=== PATIENT | female | born 1985 ===

== ENCOUNTER 2017-12-06 22:00 | Emergency (ER) | payer BC ==
[2017-12-06 23:17] VITALS: BMI 43.4
--- NOTE | 2017-12-07 00:35 | OBHP ---
Datetime: 12/07/2017 00:02 IP Adm Impression: , intrauterine IP Admit Plan: Observation/Evaluation Admit Comment, IP Provider: Patient is a @ 36.0 wks with a cerclage, reported leaking this a fternoon and contractions, no vaginal bleeding, +FM. Patient has a cerclage placed for short cervix, otherwise no other antepartum issues. Patient evaluated, negative nitrazine and negative pooling. Rul ed out for rupture. Cerclage was removed - vaginal area preped with Betadine, speculum inserted, 2 mo nocryl loops found, ring forceps used, cut under the knot. monocryl removed in entirety. VE=1/50/-3. Will continue to monitor before discharge. JSX=525 mod prachi, +accels, no decels. TOCO= genaro q 3 -4 mins. If patient has no signs of early labor will discharge home, labor precautions given Pelvic Type - PN: Adequate Extremities - PN: Normal Abdomen - PN: Normal Back - PN: Normal Breast - PN: Normal Lungs - PN: Normal Heart - PN: Normal Thyroid - PN: Normal Neurologic - PN: Normal HEENT - PN: Normal General - PN: Normal FHR - Baseline A Provider: 150 Contraction Comments Provider: q 3-4 mins Pool Provider: Negative Nitrazine Provider: Negative Vital Signs Provider: Reviewed IP Chief Complaint: Uterine contractions; Suspected ruptured membranes NICHD Variability Prov Fetus A: Moderate 6-25bpm NICHD Accel Fetus A IP Provider: 15X15 Dilatation, Provider: 1 Effacement, Provider: 50 Station, Provider: -3 Genitourinary Exam: Normal DTRs - PN: Normal
[2017-12-07 18:06] VITALS: BP 114/68; PULSE 105; RESP 18; TEMP 97.9; O2SAT 98
== END 2017-12-07 01:00 | disposition home or self-care (01) ==
LOC: H.EROB2 22:00
DX: O26.93 Pregnancy related conditions, unspecified, third trimester (principal); R10.2 Pelvic and perineal pain; O34.63 Maternal care for abnormality of vagina, third trimester; N89.8 Other specified noninflammatory disorders of vagina; O26.873 Cervical shortening, third trimester; Z3A.36 36 weeks gestation of pregnancy

== ENCOUNTER 2017-12-20 11:34 | Inpatient (IN) | payer BC ==
[2017-12-20 11:51] VITALS: BMI 45.7
[2017-12-20] MEDS ORDERED: Lactated Ringer's 1,000 ML IV SCH (12:15)
[2017-12-20] MEDS: Lactated Ringer's 1,000 ML IV SCH ×2 (12:30→20:30)
[2017-12-20 13:30] LABS: BASO % 0.2 % (0.0-2.0); EOS % 0.4 % (0.0-4.0); HEMOGLOBIN 9.2 g/dL (12.0-16.0); LYMPH # 2.6 K/uL (1.0-4.3); MEAN CELL VOLUME 77.2 fl (81.0-99.0); MEAN CORPUSCULAR HGB CONC 31.1 g/dL (33.0-37.0); MEAN PLATELET VOLUME 8.4 fl (7.2-11.7); MONO # 0.7 K/uL (0.0-0.8); MONO % 5.6 % (0.0-10.0); NEUT # 8.6 K/uL (1.8-7.0); NEUT % 71.8 % (50.0-75.0); RBC 3.84 Mil/uL (3.80-5.20); RED CELL DISTRIBUTION WIDTH 16.9 % (11.5-14.5)
[2017-12-20] MEDS ORDERED: Oxytocin 30 units/LR 500ML 30 U/500 ML BAG IV ONE (13:57)
--- NOTE | 2017-12-20 14:02 | OBADHP ---
Datetime: 12/20/2017 12:18 Admit Comment, IP Provider: CC: IOL for oligo HPI: 32 YO @ 38.4 wks IUP (SYL 12/30/17 by u/s) presents to L_D for IOL for oligohydramnions. Endorsing good FM, no LOF, VB, has occasional ctx but none right now. MD: Kevyn, Dr. Castillo. OBHx: 1 demise @ 22wks 2010. 1x full term NVD (2011); Cerclage placed; baby 6.12 lbs Cerclage placed @22 wks for short cervix, s/p removal @ 36wks (2017). PNI: OLIGO; Obesity. GCT pos, GTT neg. Normal BP; 113-130/66-90s GynHx: normal periods, denies STIS PMH: denies SurgH: denies FH: denies SH: denies ETOH, smoking and illict drug use Meds: PNV Allergies: NKDA PE GEN: NAD Cardio: S1S2 no additional heart sounds Resp: clear breath sounds b/l Abdomen: Gravid, NT, BS+ Neuro: AAO x 3 Ext: non tender, no edema present u/s (12/20): AUDREY 4cm, vertex presentation FM: 140 catagory I Cervx: 3-4cm in office today A/P: 32 YP @ 38.4wks IUP (SYL 11/30/17) is admitted for IOL for oligohydramnions. Hep B neg, R ubella immune, HIV neg, GBS neg, RPR neg. -admit to L_D -start induction protocol -blood work -IV fluids -Anesthesiology consulted -continue FM Case discussed with attending Dr. Jemal Daniel, PGY I Addendum by Dr. Joaquin: I have evaluated the patient independently and I agree with the above. Pt i s /-3, AROM, clear fluid. Will consider starting Pitocin at next exam for augmentation Pelvic Type - PN: Adequate Extremities - PN: Normal Abdomen - PN: Normal Back - PN: Not Done Breast - PN: Not Done Lungs - PN: Normal Heart - PN: Normal Thyroid - PN: Not Done Neurologic - PN: Normal HEENT - PN: Normal FHR - Baseline A Provider: 140 Vital Signs Provider: Reviewed; Within Normal Limits IP Chief Complaint: Scheduled induction of labor NICHD Variability Prov Fetus A: Minimal - Undetectable to <5bpm NICHD Accel Fetus A IP Provider: 15X15 FHR Category Provider Fetus A: Category I Genitourinary Exam: Normal DTRs - PN: Not Done EGA AdmitDate IP: 38.4 IP Adm Impression: Term, intrauterine IP Admit Plan: Admit to unit; Initiate labor protocol; Initiate labor induction protocol Datetime: 12/07/2017 00:02 General - PN: Normal Contraction Comments Provider: q 3-4 mins Pool Provider: Negative Nitrazine Provider: Negative Dilatation, Provider: 1 Effacement, Provider: 50 Station, Provider: -3
[2017-12-20] MEDS ORDERED: Penicillin G Potassium 5 MU in Sodium Chloride 0.9% 50 ML IVPB ONE (19:12)
[2017-12-20] MEDS ORDERED: Lidocaine 2% PF (10 ml) Amp ONE (19:33)
[2017-12-20] MEDS ORDERED: Fentanyl/Bupivacaine HCl 250 ML EPI ONE (19:34)
--- NOTE | 2017-12-20 23:30 | OBPN ---
Datetime: 12/20/2017 23:24 IP Procedures: Sterile Vag Exam IP Progress Plan: Continue present management Membranes, Provider: Ruptured Contraction Comments Provider: q 4 mins FHR - Baseline A Provider: 150 IP Progress Note Comment: Patient evaluated, comfortable s/p epidural VE=5/50/-3 FHR = 150 mod prachi, early decels, previous late decelerations resolved TOCO= genaro q 4 mins A/P 1. Late decelerations resolved. Pitocin restarted, FHR = reassuring. 2. CEFM and TOCO 3. Re-evaluate as needed NICHD Variability Prov Fetus A: Moderate 6-25bpm Dilatation, Provider: 5 Effacement, Provider: 50 Station, Provider: -3 NICHD Decel Fetus A IP Provider: Early Datetime: 12/20/2017 12:18 Vital Signs Provider: Reviewed; Within Normal Limits NICHD Accel Fetus A IP Provider: 15X15 FHR Category Provider Fetus A: Category I Datetime: 12/07/2017 00:02 Pool Provider: Negative Nitrazine Provider: Negative
[2017-12-21] MEDS ORDERED: Lidocaine 2% Inj (20ml) ONE (01:42)
[2017-12-21] MEDS ORDERED: Oxycodone/Acetaminophen 5/325 mg Tab PO PRN ×4 (01:58→04:03)
--- NOTE | 2017-12-21 02:20 | OBDS ---
MATERNAL INFORMATION Provider Comments: of live female over intact perineum, 6lbs 5oz, 9/9, followed by jenna sanchez and rest of , mouth and nose suctioned, cord clamped and cut, infant placed on mother's ch est, cord blood obtained, placenta delivered spontaneously, fundus firm, no lacerations noted, EBL=75 mL LABOR SUMMARY EDC: 12/30/2017 00:00 No. Babies in Womb: 1 LABOR INFORMATION Group B Beta Strep: Negative MEMBRANES Membranes Rupture Method: Artificial Amniotic Fluid Color: Clear Amniotic Fluid Amount: Small
[2017-12-21] MEDS ORDERED: Oxytocin 30 units/LR 500ML 30 U/500 ML BAG IV ONE (03:53)
[2017-12-21 06:29] LABS: BASO % 0.2 % (0.0-2.0); EOS % 0.2 % (0.0-4.0); HEMOGLOBIN 8.7 g/dL (12.0-16.0); LYMPH # 2.3 K/uL (1.0-4.3); LYMPH % 14.9 % (20.0-40.0); MEAN CELL VOLUME 77.2 fl (81.0-99.0); MEAN CORPUSCULAR HEMOGLOBIN 24.2 pg (27.0-31.0); MEAN CORPUSCULAR HGB CONC 31.3 g/dL (33.0-37.0); MEAN PLATELET VOLUME 8.5 fl (7.2-11.7); MONO # 0.8 K/uL (0.0-0.8); MONO % 5.2 % (0.0-10.0); NEUT # 12.2 K/uL (1.8-7.0); NEUT % 79.5 % (50.0-75.0); RBC 3.58 Mil/uL (3.80-5.20); RED CELL DISTRIBUTION WIDTH 17.2 % (11.5-14.5); WHITE BLOOD COUNT 15.4 K/uL (4.8-10.8)
[2017-12-22 06:35] LABS: BASO % 0.3 % (0.0-2.0); EOS # 0.2 K/uL (0.0-0.7); EOS % 1.2 % (0.0-4.0); HEMOGLOBIN 8.5 g/dL (12.0-16.0); LYMPH # 3.7 K/uL (1.0-4.3); LYMPH % 30.5 % (20.0-40.0); MEAN CELL VOLUME 77.2 fl (81.0-99.0); MEAN CORPUSCULAR HEMOGLOBIN 24.4 pg (27.0-31.0); MEAN CORPUSCULAR HGB CONC 31.6 g/dL (33.0-37.0); MEAN PLATELET VOLUME 8.3 fl (7.2-11.7); MONO # 0.8 K/uL (0.0-0.8); MONO % 6.8 % (0.0-10.0); NEUT # 7.4 K/uL (1.8-7.0); NEUT % 61.2 % (50.0-75.0); NRBC % 0.1 % (0.0-0.0); RBC 3.5 Mil/uL (3.80-5.20); RED CELL DISTRIBUTION WIDTH 17.1 % (11.5-14.5)
[2017-12-23 19:07] VITALS: BP 101/50; PULSE 86; RESP 20; TEMP 98.3; O2SAT 100
== END 2017-12-23 14:50 | disposition home or self-care (01) | DRG 775 ==
LOC: H.EROB2 11:34 → H.L&D 11:46 → H.EROB2 12:06 → H.OB/GYN 12-21 03:37
PROVIDERS: ADMIT Obstetrics & Gynecology; ATTEND Obstetrics & Gynecology
PROC: 4A1HXCZ Monitoring of Products of Conception, Cardiac Rate, External Approach (ICD-10-PCS; 2017-12-20)
PROC: 10E0XZZ Delivery of Products of Conception, External Approach (ICD-10-PCS; principal; 2017-12-21)
PROC: 10907ZC Drainage of Amniotic Fluid, Therapeutic from Products of Conception, Via Natural or Artificial Opening (ICD-10-PCS; 2017-12-21)
DX: O41.03X0 Oligohydramnios, third trimester, not applicable or unspecified (principal); O76 Abnormality in fetal heart rate and rhythm complicating labor and delivery; Z37.0 Single live birth; Z3A.38 38 weeks gestation of pregnancy